=== PATIENT | male | born 1935 | race Caucasian/White ===

== ENCOUNTER 2021-09-05 17:40 | Emergency (ER) | payer OTHER, MEDICARE | END 2021-09-05 18:55 | disposition home or self-care (01) | LOC: NAV ERS 17:40 | DX: T67.5XXA Heat exhaustion, unspecified, initial encounter (principal); I10 Essential (primary) hypertension; Z79.899 Other long term (current) drug therapy; V89.2XXA Person injured in unspecified motor-vehicle accident, traffic, initial encounter | CPT/HCPCS: 99283 ==